=== PATIENT | female | born 1935 | race Caucasian/White ===

== ENCOUNTER → 2022-03-17 | Outpatient (CLI) | payer MEDICARE | END | disposition home or self-care (01) | LOC: CT 13:53 | PROVIDERS: ATTEND Family Medicine | DX: I67.82 Cerebral ischemia (principal); R41.0 Disorientation, unspecified ==

== ENCOUNTER 2022-07-11 10:05 | Emergency (ER) | payer MEDICARE ==
[~2022-07-11] VITALS: Wt 81.6 kg
[2022-07-11 11:26] LABS: BASO # 0.1 10*3/uL (0.0-0.1); BASO % 0.7 % (0.0-1.0); EOS # 0.1 10*3/uL (0.0-0.4); EOS % 1.1 % (1.0-4.0); HEMATOCRIT 37.7 % (37.0-47.0); LYMPH # 1.1 10*3/uL (1.3-4.4); LYMPH % 12.6 % (27.0-41.0); MEAN CELL VOLUME 97.7 fl (81.0-99.0); MEAN CORPUSCULAR HGB 32.4 pg (27.0-31.0); MEAN CORPUSCULAR HGB CONC 33.2 g/dl (33.0-37.0); MEAN PLATELET VOLUME 10.6 fl (9.6-12.3); MONO # 0.8 10*3/uL (0.1-1.0); MONO % 9.4 % (3.0-9.0); NEUT # 6.7 10*3/uL (2.3-7.9); NEUT % 75.9 % (47.0-73.0); PLATELET COUNT AUTOMATED 254 10*3/uL (130-400); RED BLOOD COUNT 3.86 10*6/uL (4.10-5.10); RED CELL DISTRI WIDTH 12.3 % (0-14.5); WHITE BLOOD COUNT 8.8 10*3/uL (4.8-10.8)
[2022-07-11 11:38] LABS: ACT PARTIAL THROMBO TIME 26.4 SECONDS (20.0-32.1)
[2022-07-11 11:42] LABS: BILIRUBIN Negative (Negative); BLOOD Negative (Negative); CLARITY Clear (Clear); COLOR Yellow (Yellow); GLUCOSE Negative (Negative); KETONE Negative (Negative); LEUKO ESTERASE 1+ (Negative); NITRITE Positive (Negative); PH 7.5 (4.5-8.0)
[2022-07-11 11:44] LABS: ALKALINE PHOSPHATASE 121 U/L (45-117); BUN 17 mg/dl (7-24); CHLORIDE 94 mmol/L (98-107); LIPASE 148 U/L (73-393); POTASSIUM 3.6 mmol/L (3.5-5.1); SGOT/AST 17 IU/L (3-35); SGPT/ALT 13 U/L (12-78); SODIUM 129 mmol/L (136-145); TOTAL PROTEIN 6.7 gm/dL (6.4-8.2)
[2022-07-11 12:03] LABS: BACTERIA 4+; EPITHELIAL CELLS 0-2
== END 2022-07-11 18:09 | disposition home or self-care (01) ==
LOC: ED 10:05
PROVIDERS: Emergency Medicine
DX: R51.9 Headache, unspecified (principal); K59.00 Constipation, unspecified; R53.1 Weakness; R41.0 Disorientation, unspecified; F03.90 Unspecified dementia, unspecified severity, without behavioral disturbance, psychotic disturbance, mood disturbance, and anxiety

== ENCOUNTER 2022-07-14 06:23 | Inpatient (IN) | payer MEDICARE ==
[~2022-07-14] VITALS: Ht 170.1 cm; Wt 98.6 kg
[2022-07-14 06:26] VITALS: BP 143/84
[2022-07-14 06:54] LABS: BASO % 0.3 % (0.0-1.0); EOS % 0.3 % (1.0-4.0); HEMATOCRIT 41.4 % (37.0-47.0); LYMPH # 1.3 10*3/uL (1.3-4.4); LYMPH % 10.9 % (27.0-41.0); MEAN CELL VOLUME 95.6 fl (81.0-99.0); MEAN CORPUSCULAR HGB 31.6 pg (27.0-31.0); MEAN CORPUSCULAR HGB CONC 33.1 g/dl (33.0-37.0); MEAN PLATELET VOLUME 10.4 fl (9.6-12.3); MONO # 1.2 10*3/uL (0.1-1.0); MONO % 9.6 % (3.0-9.0); NEUT # 9.5 10*3/uL (2.3-7.9); NEUT % 78.4 % (47.0-73.0); PLATELET COUNT AUTOMATED 314 10*3/uL (130-400); RED BLOOD COUNT 4.33 10*6/uL (4.10-5.10); RED CELL DISTRI WIDTH 11.9 % (0-14.5); WHITE BLOOD COUNT 12.2 10*3/uL (4.8-10.8)
[2022-07-14 07:18] LABS: CREATININE 1.4 mg/dL (0.55-1.02); POTASSIUM 3.4 mmol/L (3.5-5.1); TOTAL PROTEIN 7.2 gm/dL (6.4-8.2)
[2022-07-14 07:46] VITALS: BP 148/91
[2022-07-14 15:36] VITALS: BP 146/96
[2022-07-14] MEDS ORDERED: ASPIRIN ADULT L81 M2 PO (16:06)
[2022-07-14] MEDS ORDERED: VIT B COMPLEX PO (16:07)
[2022-07-14] MEDS ORDERED: BACLOFEN5 MG PO (16:07)
[2022-07-14] MEDS ORDERED: BIOFREEZE118 ML T (16:08)
[2022-07-14] MEDS ORDERED: CIPRO500 MG PO (16:10)
[2022-07-14] MEDS ORDERED: ARTHRITIS PAIN150 GM T (16:12)
[2022-07-14] MEDS ORDERED: DOK100 M1 PO (16:12)
[2022-07-14] MEDS ORDERED: FAMOTIDINE40 MG PO (16:13)
[2022-07-14] MEDS ORDERED: LASIX20 MG PO (16:13)
[2022-07-14] MEDS ORDERED: MELATONIN5 M1 SL (16:14)
[2022-07-14] MEDS ORDERED: HYDROCHLOROTHIA25 M1 PO (16:14)
[2022-07-14] MEDS ORDERED: IMDUR SA30 MG PO (16:15)
[2022-07-14] MEDS ORDERED: HYDROXYZINE PAM25 M1 PO (16:15)
[2022-07-14] MEDS ORDERED: ALTAVERA PO (16:18)
[2022-07-14] MEDS ORDERED: MEMANTINE HCL5 MG PO (16:19)
[2022-07-14] MEDS ORDERED: MELOXICAM15 MG PO (16:19)
[2022-07-14] MEDS ORDERED: LOPRESSOR25 MG PO (16:20)
[2022-07-14] MEDS ORDERED: [UNRECOGNIZED DRUG - OTHER] PO (16:21)
[2022-07-14] MEDS ORDERED: QUINAPRIL20 MG PO (16:22)
[2022-07-14] MEDS ORDERED: PRAVASTATIN SOD80 MG PO (16:22)
[2022-07-14] MEDS ORDERED: POTASSIUM CHLO10 ME4 PO (16:22)
[2022-07-14] MEDS ORDERED: RIVASTIGMINE TAR3 M1 PO (16:23)
[2022-07-14] MEDS ORDERED: SODIUM CHLORIDE1 GM PO (16:24)
[2022-07-14] MEDS ORDERED: TRAMADOL HCL50 MG PO (16:25)
[2022-07-14] MEDS ORDERED: VIT B12 PO (16:27)
[2022-07-14] MEDS ORDERED: VIT D PO (16:27)
[2022-07-14] MEDS ORDERED: MECLIZINE HCL25 M2 PO (16:29)
[2022-07-14] MEDS ORDERED: NYSTOP60 GM T (16:30)
[2022-07-14] MEDS ORDERED: ONDANSETRON HYDR4 MG PO (16:31)
[2022-07-14] MEDS ORDERED: MIRALAX119 GM PO (16:32)
[2022-07-14] MEDS ORDERED: MYLICON, MYLANT80 MG PO (16:32)
[2022-07-14] MEDS ORDERED: ULTRAM50 MG PO (16:33)
[2022-07-14 20:00] VITALS: BP 168/84
[2022-07-15] VITALS: BP 153/70; BP 153/73
[2022-07-15 06:34] LABS: BASO # 0.1 10*3/uL (0.0-0.1); BASO % 0.6 % (0.0-1.0); EOS % 0.3 % (1.0-4.0); LYMPH # 1.6 10*3/uL (1.3-4.4); LYMPH % 14.5 % (27.0-41.0); MEAN CELL VOLUME 98.4 fl (81.0-99.0); MEAN CORPUSCULAR HGB 31.9 pg (27.0-31.0); MEAN CORPUSCULAR HGB CONC 32.4 g/dl (33.0-37.0); MEAN PLATELET VOLUME 11.1 fl (9.6-12.3); MONO # 1.1 10*3/uL (0.1-1.0); MONO % 10.4 % (3.0-9.0); NEUT # 8.1 10*3/uL (2.3-7.9); NEUT % 73.7 % (47.0-73.0); PLATELET COUNT AUTOMATED 287 10*3/uL (130-400); RED BLOOD COUNT 4.27 10*6/uL (4.10-5.10); RED CELL DISTRI WIDTH 12.1 % (0-14.5); WHITE BLOOD COUNT 10.9 10*3/uL (4.8-10.8)
[2022-07-15 06:52] LABS: CHLORIDE 100 mmol/L (98-107); POTASSIUM 3.4 mmol/L (3.5-5.1); SODIUM 131 mmol/L (136-145)
[2022-07-15 06:58] LABS: BUN 30 mg/dl (7-24); CREATININE 1.03 mg/dL (0.55-1.02)
[2022-07-15 08:00] VITALS: BP 158/90
[2022-07-15 12:00] VITALS: BP 168/82
[2022-07-15 16:00] VITALS: BP 120/78
[2022-07-15 20:00] VITALS: BP 155/83
[2022-07-16] VITALS: BP 150/73
[2022-07-16 07:48] LABS: BASO # 0.1 10*3/uL (0.0-0.1); BASO % 0.4 % (0.0-1.0); EOS % 0.1 % (1.0-4.0); HEMATOCRIT 35.9 % (37.0-47.0); LYMPH # 2.1 10*3/uL (1.3-4.4); LYMPH % 14.2 % (27.0-41.0); MEAN CORPUSCULAR HGB 31.9 pg (27.0-31.0); MEAN CORPUSCULAR HGB CONC 32.9 g/dl (33.0-37.0); MEAN PLATELET VOLUME 10.8 fl (9.6-12.3); MONO # 1.5 10*3/uL (0.1-1.0); MONO % 10.2 % (3.0-9.0); NEUT % 74.6 % (47.0-73.0); PLATELET COUNT AUTOMATED 309 10*3/uL (130-400); RED CELL DISTRI WIDTH 12.3 % (0-14.5); WHITE BLOOD COUNT 14.8 10*3/uL (4.8-10.8)
[2022-07-16 08:00] VITALS: BP 122/90
[2022-07-16 08:02] LABS: CHLORIDE 106 mmol/L (98-107); CREATININE 0.87 mg/dL (0.55-1.02); POTASSIUM 4.1 mmol/L (3.5-5.1); SODIUM 137 mmol/L (136-145)
[2022-07-16 08:08] LABS: BUN 48 mg/dl (7-24)
[2022-07-16 12:00] VITALS: BP 122/71
[2022-07-16 16:00] VITALS: BP 128/80
[2022-07-16 20:00] VITALS: BP 97/55
[2022-07-17] VITALS (7 sets, daily range): BP systolic 82–134; BP diastolic 45–70
[2022-07-17 06:51] LABS: BASO # 0.1 10*3/uL (0.0-0.1); BASO % 0.6 % (0.0-1.0); EOS # 0.1 10*3/uL (0.0-0.4); EOS % 0.4 % (1.0-4.0); HEMATOCRIT 31.6 % (37.0-47.0); LYMPH # 2.4 10*3/uL (1.3-4.4); LYMPH % 18.9 % (27.0-41.0); MEAN CORPUSCULAR HGB 32.7 pg (27.0-31.0); MEAN CORPUSCULAR HGB CONC 32.6 g/dl (33.0-37.0); MEAN PLATELET VOLUME 10.9 fl (9.6-12.3); MONO # 1.3 10*3/uL (0.1-1.0); MONO % 9.9 % (3.0-9.0); NEUT # 8.8 10*3/uL (2.3-7.9); PLATELET COUNT AUTOMATED 283 10*3/uL (130-400); RED BLOOD COUNT 3.15 10*6/uL (4.10-5.10); RED CELL DISTRI WIDTH 12.9 % (0-14.5); WHITE BLOOD COUNT 12.7 10*3/uL (4.8-10.8)
[2022-07-17 07:05] LABS: CREATININE 1.71 mg/dL (0.55-1.02)
[2022-07-17 07:33] LABS: MEAN CELL VOLUME 100.3 fl (81.0-99.0)
[2022-07-17 15:12] LABS: BASO # 0.1 10*3/uL (0.0-0.1); BASO % 0.7 % (0.0-1.0); EOS # 0.1 10*3/uL (0.0-0.4); EOS % 0.9 % (1.0-4.0); HEMATOCRIT 34.2 % (37.0-47.0); LYMPH # 2.4 10*3/uL (1.3-4.4); LYMPH % 18.2 % (27.0-41.0); MEAN CORPUSCULAR HGB 32.2 pg (27.0-31.0); MEAN CORPUSCULAR HGB CONC 30.7 g/dl (33.0-37.0); MEAN PLATELET VOLUME 11.2 fl (9.6-12.3); MONO # 1.3 10*3/uL (0.1-1.0); MONO % 9.8 % (3.0-9.0); NEUT # 9.2 10*3/uL (2.3-7.9); NEUT % 69.5 % (47.0-73.0); PLATELET COUNT AUTOMATED 290 10*3/uL (130-400); RED BLOOD COUNT 3.26 10*6/uL (4.10-5.10); RED CELL DISTRI WIDTH 12.8 % (0-14.5); WHITE BLOOD COUNT 13.2 10*3/uL (4.8-10.8)
[2022-07-17 15:34] LABS: MEAN CELL VOLUME 104.9 fl (81.0-99.0)
[2022-07-18] VITALS: BP 113/56
[2022-07-18 06:37] LABS: CREATININE 1.28 mg/dL (0.55-1.02); POTASSIUM 4.4 mmol/L (3.5-5.1)
[2022-07-18 06:47] LABS: BASO # 0.1 10*3/uL (0.0-0.1); BASO % 0.8 % (0.0-1.0); EOS # 0.3 10*3/uL (0.0-0.4); EOS % 2.6 % (1.0-4.0); HEMATOCRIT 27.9 % (37.0-47.0); LYMPH # 1.9 10*3/uL (1.3-4.4); LYMPH % 19.9 % (27.0-41.0); MEAN CORPUSCULAR HGB CONC 31.5 g/dl (33.0-37.0); MEAN PLATELET VOLUME 11.4 fl (9.6-12.3); MONO # 0.9 10*3/uL (0.1-1.0); MONO % 9.1 % (3.0-9.0); NEUT # 6.4 10*3/uL (2.3-7.9); NEUT % 66.8 % (47.0-73.0); PLATELET COUNT AUTOMATED 267 10*3/uL (130-400); RED BLOOD COUNT 2.75 10*6/uL (4.10-5.10); WHITE BLOOD COUNT 9.6 10*3/uL (4.8-10.8)
[2022-07-18 06:56] LABS: MEAN CELL VOLUME 101.5 fl (81.0-99.0)
[2022-07-18 08:00] VITALS: BP 134/70
[2022-07-18 08:26] LABS: BILIRUBIN Negative (Negative); BLOOD 3+ (Negative); CLARITY Cloudy (Clear); COLOR Yellow (Yellow); GLUCOSE Negative (Negative); KETONE Negative (Negative); LEUKO ESTERASE 2+ (Negative); NITRITE Negative (Negative); PH 5.5 (4.5-8.0); SPECIFIC GRAVITY 1.015 (1.001-1.030); UROBILINOGEN 0.2 E.U./dl (0.0-1.0)
[2022-07-18 08:41] LABS: BACTERIA 3+
[2022-07-18 08:42] LABS: WBC 41-50 wbc/hpf (0-5); YEAST TRACE
[2022-07-18 08:43] LABS: RBC 21-30 rbc/hpf (0-2)
[2022-07-18 12:00] VITALS: BP 114/58
[2022-07-18 15:37] VITALS: BP 122/55
[2022-07-18 20:00] VITALS: BP 122/59
[2022-07-19] VITALS (10 sets, daily range): BP systolic 120–145; BP diastolic 58–81
[2022-07-19 08:58] LABS: BASO # 0.1 10*3/uL (0.0-0.1); BASO % 0.6 % (0.0-1.0); EOS # 0.3 10*3/uL (0.0-0.4); EOS % 3.5 % (1.0-4.0); HEMATOCRIT 25.3 % (37.0-47.0); LYMPH # 1.6 10*3/uL (1.3-4.4); LYMPH % 17.1 % (27.0-41.0); MEAN CELL VOLUME 103.7 fl (81.0-99.0); MEAN CORPUSCULAR HGB 32.8 pg (27.0-31.0); MEAN CORPUSCULAR HGB CONC 31.6 g/dl (33.0-37.0); MEAN PLATELET VOLUME 11.1 fl (9.6-12.3); MONO # 0.8 10*3/uL (0.1-1.0); MONO % 8.8 % (3.0-9.0); NEUT # 6.3 10*3/uL (2.3-7.9); NEUT % 69.2 % (47.0-73.0); PLATELET COUNT AUTOMATED 249 10*3/uL (130-400); RED BLOOD COUNT 2.44 10*6/uL (4.10-5.10); WHITE BLOOD COUNT 9.1 10*3/uL (4.8-10.8)
[2022-07-19 09:07] LABS: INTERNATIONAL NORM RATIO 1.1 (2.0-3.5)
[2022-07-19 09:13] LABS: CREATININE 1.06 mg/dL (0.55-1.02); POTASSIUM 4.1 mmol/L (3.5-5.1); TOTAL PROTEIN 5.3 gm/dL (6.4-8.2)
[2022-07-20] VITALS: BP 145/66
[2022-07-20 08:00] VITALS: BP 157/72
[2022-07-20 08:52] LABS: BASO # 0.1 10*3/uL (0.0-0.1); BASO % 0.7 % (0.0-1.0); EOS # 0.3 10*3/uL (0.0-0.4); EOS % 3.3 % (1.0-4.0); LYMPH # 1.5 10*3/uL (1.3-4.4); LYMPH % 17.6 % (27.0-41.0); MEAN CELL VOLUME 101.4 fl (81.0-99.0); MEAN CORPUSCULAR HGB 32.5 pg (27.0-31.0); MEAN CORPUSCULAR HGB CONC 32.1 g/dl (33.0-37.0); MEAN PLATELET VOLUME 10.7 fl (9.6-12.3); MONO # 0.8 10*3/uL (0.1-1.0); MONO % 8.9 % (3.0-9.0); NEUT # 5.9 10*3/uL (2.3-7.9); NEUT % 68.9 % (47.0-73.0); PLATELET COUNT AUTOMATED 252 10*3/uL (130-400); RED BLOOD COUNT 2.86 10*6/uL (4.10-5.10); RED CELL DISTRI WIDTH 13.2 % (0-14.5); WHITE BLOOD COUNT 8.6 10*3/uL (4.8-10.8)
[2022-07-20 09:04] LABS: BUN 29 mg/dl (7-24); CHLORIDE 114 mmol/L (98-107); CREATININE 0.93 mg/dL (0.55-1.02); POTASSIUM 4.1 mmol/L (3.5-5.1); SODIUM 143 mmol/L (136-145)
[2022-07-20 12:00] VITALS: BP 161/70
[2022-07-20 16:00] VITALS: BP 130/76
[2022-07-20 20:00] VITALS: BP 141/61
[2022-07-21] VITALS: BP 148/62
[2022-07-21 06:31] LABS: BASO # 0.1 10*3/uL (0.0-0.1); BASO % 0.8 % (0.0-1.0); EOS # 0.4 10*3/uL (0.0-0.4); EOS % 4.3 % (1.0-4.0); HEMATOCRIT 28.9 % (37.0-47.0); LYMPH # 1.7 10*3/uL (1.3-4.4); LYMPH % 18.8 % (27.0-41.0); MEAN CORPUSCULAR HGB 32.5 pg (27.0-31.0); MEAN CORPUSCULAR HGB CONC 32.2 g/dl (33.0-37.0); MEAN PLATELET VOLUME 10.9 fl (9.6-12.3); MONO # 0.8 10*3/uL (0.1-1.0); MONO % 8.8 % (3.0-9.0); NEUT # 6.1 10*3/uL (2.3-7.9); NEUT % 66.6 % (47.0-73.0); PLATELET COUNT AUTOMATED 268 10*3/uL (130-400); RED BLOOD COUNT 2.86 10*6/uL (4.10-5.10); RED CELL DISTRI WIDTH 12.9 % (0-14.5); WHITE BLOOD COUNT 9.1 10*3/uL (4.8-10.8)
[2022-07-21 06:44] LABS: BUN 22 mg/dl (7-24); CHLORIDE 111 mmol/L (98-107); CREATININE 0.96 mg/dL (0.55-1.02); POTASSIUM 4.2 mmol/L (3.5-5.1); SODIUM 144 mmol/L (136-145)
[2022-07-21 08:00] VITALS: BP 153/85
[2022-07-21 12:00] VITALS: BP 148/62
[2022-07-21 16:00] VITALS: BP 154/74
[2022-07-21 20:00] VITALS: BP 138/58
[2022-07-21] MEDS ORDERED: AMOXICILLIN500 M2 PO (22:08)
[2022-07-22] VITALS: BP 149/81
[2022-07-22 08:00] VITALS: BP 148/84
[2022-07-22 12:00] VITALS: BP 127/74
[2022-07-22 16:00] VITALS: BP 156/86
[2022-07-22 20:00] VITALS: BP 123/74
[2022-07-23] VITALS (14 sets, daily range): BP systolic 101–167; BP diastolic 48–99
[2022-07-23 06:04] LABS: BUN 23 mg/dl (7-24); CHLORIDE 114 mmol/L (98-107); CREATININE 0.96 mg/dL (0.55-1.02); POTASSIUM 4.3 mmol/L (3.5-5.1); SODIUM 141 mmol/L (136-145)
[2022-07-23 06:21] LABS: BASO # 0.1 10*3/uL (0.0-0.1); BASO % 0.6 % (0.0-1.0); EOS # 0.3 10*3/uL (0.0-0.4); EOS % 2.7 % (1.0-4.0); HEMATOCRIT 25.1 % (37.0-47.0); LYMPH # 1.8 10*3/uL (1.3-4.4); LYMPH % 19.7 % (27.0-41.0); MEAN CORPUSCULAR HGB 32.5 pg (27.0-31.0); MEAN CORPUSCULAR HGB CONC 31.1 g/dl (33.0-37.0); MEAN PLATELET VOLUME 10.8 fl (9.6-12.3); MONO # 0.7 10*3/uL (0.1-1.0); MONO % 7.9 % (3.0-9.0); NEUT # 6.4 10*3/uL (2.3-7.9); NEUT % 68.5 % (47.0-73.0); PLATELET COUNT AUTOMATED 286 10*3/uL (130-400); RED CELL DISTRI WIDTH 13.2 % (0-14.5); WHITE BLOOD COUNT 9.3 10*3/uL (4.8-10.8)
[2022-07-23 06:25] LABS: MEAN CELL VOLUME 104.6 fl (81.0-99.0)
[2022-07-24] VITALS: BP 140/68
[2022-07-24 08:00] VITALS: BP 138/70; BP 139/72
[2022-07-24 08:47] LABS: BASO # 0.1 10*3/uL (0.0-0.1); BASO % 0.5 % (0.0-1.0); EOS # 0.3 10*3/uL (0.0-0.4); EOS % 3.5 % (1.0-4.0); HEMATOCRIT 27.8 % (37.0-47.0); LYMPH # 1.3 10*3/uL (1.3-4.4); LYMPH % 14.5 % (27.0-41.0); MEAN CORPUSCULAR HGB 33.1 pg (27.0-31.0); MEAN CORPUSCULAR HGB CONC 32.7 g/dl (33.0-37.0); MEAN PLATELET VOLUME 10.1 fl (9.6-12.3); MONO # 0.7 10*3/uL (0.1-1.0); MONO % 7.6 % (3.0-9.0); NEUT # 6.8 10*3/uL (2.3-7.9); NEUT % 73.5 % (47.0-73.0); PLATELET COUNT AUTOMATED 283 10*3/uL (130-400); RED BLOOD COUNT 2.75 10*6/uL (4.10-5.10); RED CELL DISTRI WIDTH 13.5 % (0-14.5); WHITE BLOOD COUNT 9.2 10*3/uL (4.8-10.8)
[2022-07-24 08:51] LABS: MEAN CELL VOLUME 101.1 fl (81.0-99.0)
[2022-07-24 08:59] LABS: BUN 16 mg/dl (7-24); CHLORIDE 112 mmol/L (98-107); CREATININE 0.94 mg/dL (0.55-1.02); POTASSIUM 3.7 mmol/L (3.5-5.1); SODIUM 143 mmol/L (136-145)
[2022-07-24 12:00] VITALS: BP 157/60
[2022-07-24 15:03] VITALS: BP 151/50
[2022-07-24 20:00] VITALS: BP 128/70
[2022-07-25] VITALS: BP 149/76
[2022-07-25 06:47] LABS: BASO # 0.1 10*3/uL (0.0-0.1); BASO % 0.6 % (0.0-1.0); EOS # 0.3 10*3/uL (0.0-0.4); EOS % 3.2 % (1.0-4.0); HEMATOCRIT 27.1 % (37.0-47.0); LYMPH # 1.5 10*3/uL (1.3-4.4); MEAN CORPUSCULAR HGB 31.9 pg (27.0-31.0); MONO # 0.8 10*3/uL (0.1-1.0); MONO % 8.6 % (3.0-9.0); NEUT # 6.2 10*3/uL (2.3-7.9); NEUT % 70.1 % (47.0-73.0); PLATELET COUNT AUTOMATED 289 10*3/uL (130-400); RED BLOOD COUNT 2.63 10*6/uL (4.10-5.10); RED CELL DISTRI WIDTH 13.3 % (0-14.5); WHITE BLOOD COUNT 8.8 10*3/uL (4.8-10.8)
[2022-07-25 07:03] LABS: BUN 15 mg/dl (7-24); CHLORIDE 114 mmol/L (98-107); CREATININE 0.96 mg/dL (0.55-1.02); POTASSIUM 3.7 mmol/L (3.5-5.1); SODIUM 144 mmol/L (136-145)
[2022-07-25 08:00] VITALS: BP 155/77
[2022-07-25 12:00] VITALS: BP 155/77
[2022-07-25 16:00] VITALS: BP 157/90
[2022-07-25 20:00] VITALS: BP 151/77
[2022-07-26] VITALS: BP 137/69
[2022-07-26 05:30] LABS: BUN 14 mg/dl (7-24); CHLORIDE 114 mmol/L (98-107); CREATININE 0.97 mg/dL (0.55-1.02); POTASSIUM 3.8 mmol/L (3.5-5.1); SODIUM 145 mmol/L (136-145)
[2022-07-26 06:12] LABS: BASO # 0.1 10*3/uL (0.0-0.1); BASO % 0.7 % (0.0-1.0); EOS # 0.3 10*3/uL (0.0-0.4); EOS % 3.8 % (1.0-4.0); HEMATOCRIT 27.4 % (37.0-47.0); LYMPH # 1.7 10*3/uL (1.3-4.4); MEAN CELL VOLUME 102.6 fl (81.0-99.0); MEAN CORPUSCULAR HGB 31.8 pg (27.0-31.0); MONO # 0.8 10*3/uL (0.1-1.0); MONO % 9.5 % (3.0-9.0); NEUT # 5.6 10*3/uL (2.3-7.9); NEUT % 65.5 % (47.0-73.0); PLATELET COUNT AUTOMATED 300 10*3/uL (130-400); RED BLOOD COUNT 2.67 10*6/uL (4.10-5.10); RED CELL DISTRI WIDTH 13.3 % (0-14.5); WHITE BLOOD COUNT 8.5 10*3/uL (4.8-10.8)
[2022-07-26 08:00] VITALS: BP 149/75
[2022-07-26 12:00] VITALS: BP 133/80
[2022-07-26 16:00] VITALS: BP 154/72
[2022-07-26 20:00] VITALS: BP 119/64
[2022-07-27] VITALS: BP 140/63
[2022-07-27 06:51] LABS: BASO # 0.1 10*3/uL (0.0-0.1); BASO % 0.7 % (0.0-1.0); EOS # 0.2 10*3/uL (0.0-0.4); EOS % 3.6 % (1.0-4.0); HEMATOCRIT 26.8 % (37.0-47.0); LYMPH # 1.3 10*3/uL (1.3-4.4); LYMPH % 18.8 % (27.0-41.0); MEAN CELL VOLUME 103.5 fl (81.0-99.0); MEAN CORPUSCULAR HGB 32.4 pg (27.0-31.0); MEAN CORPUSCULAR HGB CONC 31.3 g/dl (33.0-37.0); MEAN PLATELET VOLUME 10.8 fl (9.6-12.3); MONO # 0.7 10*3/uL (0.1-1.0); MONO % 10.8 % (3.0-9.0); NEUT # 4.4 10*3/uL (2.3-7.9); NEUT % 65.7 % (47.0-73.0); PLATELET COUNT AUTOMATED 313 10*3/uL (130-400); RED BLOOD COUNT 2.59 10*6/uL (4.10-5.10); WHITE BLOOD COUNT 6.8 10*3/uL (4.8-10.8)
[2022-07-27 07:19] LABS: BUN 13 mg/dl (7-24); CHLORIDE 112 mmol/L (98-107); CREATININE 0.98 mg/dL (0.55-1.02); POTASSIUM 3.9 mmol/L (3.5-5.1); SODIUM 143 mmol/L (136-145)
[2022-07-27 09:10] VITALS: BP 153/68
[2022-07-27 12:00] VITALS: BP 153/68
[2022-07-27 16:00] VITALS: BP 153/68
== END 2022-07-27 17:20 | DRG 871 ==
LOC: ED 06:23 → 4E 09:01 → EDHOLD 09:01 → 4E 15:27
PROVIDERS: Emergency Medicine; Family Medicine; Internal Medicine; Registered Nurse; Student in an Organized Health Care Education/Training Program; ADMIT Internal Medicine; ATTEND Internal Medicine
PROC: 30233N1 Transfusion of Nonautologous Red Blood Cells into Peripheral Vein, Percutaneous Approach (ICD-10-PCS; 2022-07-19)
PROC: 0DB78ZX Excision of Stomach, Pylorus, Via Natural or Artificial Opening Endoscopic, Diagnostic (ICD-10-PCS; principal; 2022-07-23)
PROC: 0DB98ZX Excision of Duodenum, Via Natural or Artificial Opening Endoscopic, Diagnostic (ICD-10-PCS; 2022-07-23)
PROC: 30233N1 Transfusion of Nonautologous Red Blood Cells into Peripheral Vein, Percutaneous Approach (ICD-10-PCS; 2022-07-23)
DX: A41.9 Sepsis, unspecified organism (principal); G93.41 Metabolic encephalopathy; N17.0 Acute kidney failure with tubular necrosis; K25.4 Chronic or unspecified gastric ulcer with hemorrhage; K26.4 Chronic or unspecified duodenal ulcer with hemorrhage; E44.0 Moderate protein-calorie malnutrition; Z16.29 Resistance to other single specified antibiotic; Z16.22 Resistance to vancomycin related antibiotics; N30.00 Acute cystitis without hematuria; B96.6 Bacteroides fragilis [B. fragilis] as the cause of diseases classified elsewhere; B95.2 Enterococcus as the cause of diseases classified elsewhere; F03.90 Unspecified dementia, unspecified severity, without behavioral disturbance, psychotic disturbance, mood disturbance, and anxiety; I25.10 Atherosclerotic heart disease of native coronary artery without angina pectoris; E78.5 Hyperlipidemia, unspecified; G89.29 Other chronic pain; E87.6 Hypokalemia; Z66 Do not resuscitate; D64.9 Anemia, unspecified; R73.9 Hyperglycemia, unspecified; Z95.5 Presence of coronary angioplasty implant and graft; Z51.5 Encounter for palliative care; Z68.34 Body mass index [BMI] 34.0-34.9, adult